=== PATIENT | male | born 1945 | race Caucasian/White ===

== ENCOUNTER 2017-10-18 22:30 | Inpatient (IN) ==
--- NOTE | 2017-10-18 22:38 | Emergency Department Note ---
Disposition Clinical Impression: HCAP (healthcare-associated pneumonia) Altered mental status Qualifiers: Altered mental status type: unspecified Qualified Code(s): R41.82 - Altered mental status, unspecified Sepsis Qualifiers: Sepsis type: sepsis due to unspecified organism Qualified Code(s): A41.9 - Sepsis, unspecified organism Disposition: Admitted As Inpatient Condition: Fair General Adult HPI - General Stated complaint: fever Time Seen by Provider: 10/18/17 22:35 - Related Data Home Medications Medication Instructions Recorded Confirmed Acetaminophen [Tylenol] 650 mg PO Q6H PRN 02/22/16 10/19/17 Albuterol Neb [Proventil Neb] 2.5 mg IH Q6H PRN 02/22/16 10/19/17 Benztropine [Cogentin] 1 mg PO TID 02/22/16 10/19/17 LORazepam [Ativan] 0.5 mg PO TID 02/22/16 10/19/17 Potassium Chloride [K-Tab ER] 20 meq PO DAILY 02/22/16 10/19/17 Topiramate [Topamax] 25 mg PO BID 02/22/16 10/19/17 Eye Vitamin-Minerals Tablet 1 cap PO BID 10/19/17 10/19/17 Fluticasone Propionate Nasal 1 spray NS 10/19/17 10/19/17 [Flonase] Gabapentin [Neurontin] 300 mg PO BID 10/19/17 10/19/17 Haloperidol [Haldol] 2.5 mg PO DAILY 10/19/17 10/19/17 Haloperidol [Haldol] 5 mg PO HS 10/19/17 10/19/17 Lurasidone HCl [Latuda] 80 mg PO HS 10/19/17 10/19/17 Metoprolol [Lopressor] 37.5 mg PO BID 10/19/17 10/19/17 Nitroglycerin [Nitrostat] 0.4 mg SL Q5M PRN 10/19/17 10/19/17 Polyethylene Glycol 3350 [MiraLAX] 17 gm PO DAILY 10/19/17 10/19/17 Sennosides/Docusate Sodium 2 each PO BID 10/19/17 10/19/17 [Senna-Docusate Sodium Tablet] Tamsulosin [Flomax] 0.4 mg PO DAILY 10/19/17 10/19/17 glipiZIDE [Glipizide] 10 mg PO BID 10/19/17 10/19/17 Previous Rx's Medication Instructions Recorded Aspirin Enteric Coated [Aspirin EC] 81 mg PO DAILY tablet. 02/23/16 Allergies Allergy/AdvReac Type Severity Reaction Status Date / Time tramadol Allergy Mild Rash Verified 02/22/16 17:05 Past Medical History - Past Medical History Medical history: Reports: COPD, GERD, hyperlipidemia, hypertension Surgical history: Reports: no surgical history Psychiatric history: Reports: schizophrenia - Social History Smoking Status: Former smoker Alcohol use: Reports: none Drug use: Reports: none Course Vital Signs Temperature 102.8 F H 10/18/17 22:45 Pulse Rate 93 10/18/17 22:45 Respiratory Rate 20 10/18/17 22:45 Blood Pressure 107/80 10/18/17 22:45 O2 Sat by Pulse Oximetry 95 10/18/17 22:45 Temperature 102.8 F H 10/18/17 22:45 Pulse Rate 83 10/19/17 01:49 Respiratory Rate 18 10/19/17 01:49 Blood Pressure 123/62 10/19/17 01:49 O2 Sat by Pulse Oximetry 98 10/19/17 01:49 Oxygen Delivery Oxygen Delivery Room Air Medical Decision Making - Lab Data Result diagrams: 10/18/17 22:45 10/18/17 22:45 Lab Results 10/18/17 10/18/17 10/18/17 Range/Units 22:45 22:45 22:45 WBC 18.0 H D (4.3-11.1) K/mcL RBC 3.48 L (4.19-5.50) M/mcL Hgb 10.6 L (12.9-16.9) g/dL Hct 32.9 L (37.5-50.1) % MCV 94.5 (83.0-100.0) fL MCH 30.5 (28.0-33.3) pg MCHC 32.2 (31.6-35.5) g/dL RDW 14.9 H (11.5-14.5) % Plt Count 208 (140-400) K/mcL MPV 9.4 (9.4-12.4) fL Immature Gran % 0.4 (0-4) % Seg Neutrophils % 83.6 % Lymphocytes % 7.4 % Monocytes % 7.2 % Eosinophils % 1.3 % Basophils % 0.1 % Neutrophils # 15.1 H (1.6-8.9) K/mcL Lymphocytes # 1.3 (0.6-4.6) K/mcL Monocytes # 1.3 (0.0-1.3) K/mcL Eosinophils # 0.2 (0.0-0.6) K/mcL Basophils # 0.0 (0.0-0.2) K/mcL PT 14.9 H (9.4-12.1) Seconds INR 1.4 APTT 80.9 H (26.0-36.0) Seconds Sodium (136-145) mEq/L Potassium (3.5-5.1) mEq/L Chloride (98-107) mEq/L Carbon Dioxide (23-29) mEq/L BUN (8-23) mg/dL Creatinine (0.70-1.30) mg/dL Est GFR ( Amer) (> 60) Est GFR (Non-Af Amer) (> 60) BUN/Creatinine Ratio (6-26) Glucose (70-105) mg/dL Calculated Osmolality (280-300) Lactic Acid (0.5-2.2) mmol/L Calcium (8.6-10.3) mg/dL Phosphorus (2.7-4.5) mg/dL Magnesium (1.6-2.6) mg/dL Total Bilirubin (0.3-1.0) mg/dL Direct Bilirubin (0.0-0.2) mg/dL Indirect Bilirubin (0.0-1.2) mg/dL AST (13-39) Units/L ALT (7-52) Units/L Alkaline Phosphatase (34-104) Units/L Troponin I (< 0.04) ng/mL Serum Total Protein (6.4-8.9) g/dL Albumin (3.5-5.7) g/dL Globulin (2.4-3.5) g/dL Albumin/Globulin Ratio (1.1-2.2) Urine Color Yellow (Yellow) Urine Clarity Cloudy A (Clear) Urine pH 7.0 (5.0-8.0) pH Units Ur Specific [place] 1.019 (1.010-1.025) Urine Protein 100 H (Neg-Trace) mg/dL Urine Glucose (UA) Normal (Normal) mg/dL Urine Ketones Negative (Negative) mg/dL Urine Blood Large H (Negative) Urine Nitrite Negative (Negative) Urine Bilirubin Negative (Negative) Urine Urobilinogen Normal (Normal) mg/dL Ur Leukocyte Esterase Trace H (Negative) Urine Microscopic RBC TNTC H (0-3) per hpf Urine Microscopic WBC 3-5 H (0-3) per hpf Ur Squamous Epith Cells Many H (None-Few) per lpf Urine Bacteria None Seen (None-Few) per hpf Hyaline Casts None Seen (None-Few) per lpf Ur Culture Indicated? NO. A (NO) Blood Type Antibody Screen 10/18/17 10/18/17 10/18/17 Range/Units 22:45 22:45 22:45 WBC (4.3-11.1) K/mcL RBC (4.19-5.50) M/mcL Hgb (12.9-16.9) g/dL Hct (37.5-50.1) % MCV (83.0-100.0) fL MCH (28.0-33.3) pg MCHC (31.6-35.5) g/dL RDW (11.5-14.5) % Plt Count (140-400) K/mcL MPV (9.4-12.4) fL Immature Gran % (0-4) % Seg Neutrophils % % Lymphocytes % % Monocytes % % Eosinophils % % Basophils % % Neutrophils # (1.6-8.9) K/mcL Lymphocytes # (0.6-4.6) K/mcL Monocytes # (0.0-1.3) K/mcL Eosinophils # (0.0-0.6) K/mcL Basophils # (0.0-0.2) K/mcL PT (9.4-12.1) Seconds INR APTT (26.0-36.0) Seconds Sodium 139 (136-145) mEq/L Potassium 4.0 (3.5-5.1) mEq/L Chloride 101 (98-107) mEq/L Carbon Dioxide 30 H (23-29) mEq/L BUN 27 H (8-23) mg/dL Creatinine 1.59 H (0.70-1.30) mg/dL Est GFR ( Amer) 53 L (> 60) Est GFR (Non-Af Amer) 43 L (> 60) BUN/Creatinine Ratio 17 (6-26) Glucose 142 H (70-105) mg/dL Calculated Osmolality 296 (280-300) Lactic Acid 1.4 (0.5-2.2) mmol/L Calcium 10.5 H (8.6-10.3) mg/dL Phosphorus 2.9 (2.7-4.5) mg/dL Magnesium 2.1 (1.6-2.6) mg/dL Total Bilirubin 0.4 (0.3-1.0) mg/dL Direct Bilirubin 0.1 (0.0-0.2) mg/dL Indirect Bilirubin 0.3 (0.0-1.2) mg/dL AST 16 (13-39) Units/L ALT 20 (7-52) Units/L Alkaline Phosphatase 133 H (34-104) Units/L Troponin I < 0.03 (< 0.04) ng/mL Serum Total Protein 7.9 (6.4-8.9) g/dL Albumin 4.4 (3.5-5.7) g/dL Globulin 3.5 (2.4-3.5) g/dL Albumin/Globulin Ratio 1.3 (1.1-2.2) Urine Color (Yellow) Urine Clarity (Clear) Urine pH (5.0-8.0) pH Units Ur Specific [place] (1.010-1.025) Urine Protein (Neg-Trace) mg/dL Urine Glucose (UA) (Normal) mg/dL Urine Ketones (Negative) mg/dL Urine Blood (Negative) Urine Nitrite (Negative) Urine Bilirubin (Negative) Urine Urobilinogen (Normal) mg/dL Ur Leukocyte Esterase (Negative) Urine Microscopic RBC (0-3) per hpf Urine Microscopic WBC (0-3) per hpf Ur Squamous Epith Cells (None-Few) per lpf Urine Bacteria (None-Few) per hpf Hyaline Casts (None-Few) per lpf Ur Culture Indicated? (NO) Blood Type O NEGATIVE Antibody Screen NEGATIVE Critical Care Time Critical Care Time: Yes Total Critical Care Time: 40 Attestation: Critical care performed: Time is exclusive of separately billable procedures. Time includes: direct patient care, patient reassessment, coordination of patient care, interpretation of data (laboratory data, radiology data, and respiratory data), review of patient's medical records, medical consultation and documentation of patient care. Procedures included in critical care time: Procedures excluded from critical care time: Attestation Statement - Attestation Attestation: I examined this patient and my medical decision-making was reviewed with the Resident Physician. I agree with the documented findings, disposition and treatment plan as described except to the extent set forth below. [facility] patient was noted to be altered and confused. Patient is normally verbal but has been mumbling tonight. No complaint when asked but I question his mental status. On exam he has a tremor. Febrile. Lungs diminished. He does have some abdominal tenderness but no guarding. Plan. Altered mental status and septic workup. Patient's workup shows significant infiltrates in his lungs. He is treated for hospital-acquired pneumonia. Patient started on broad-spectrum antibiotic and admitted. Chest X-Ray 10/18/17 22:36 IMPRESSION: Minimal perihilar opacities appear stable. Suspected ground-glass opacification in the retrocardiac left lower lobe. D/ / Luis Mercedes MD / Luis Mercedes MD Interpreting Provider: Luis Mercedes MD Head CT 10/18/17 22:36 IMPRESSION: No acute intracranial abnormality. D/ / Neno Hartley / Neno Hartley Interpreting Provider: Neno Hartley Abdomen/Pelvis CT 10/19/17 00:00 IMPRESSION: 1. Examination is limited due to lack of IV contrast and motion artifact. 2. No definite acute findings. 3. Previously noted complex loculated left pleural effusion has resolved with residual reticulonodular opacities in the lingula and left lower lobe, in area of previously noted airspace disease. This possibly represents postinflammatory changes and scarring. 4. Additional focal opacity at the left lung base could represent atelectasis or infiltrate. 5. Tiny cluster of nodular opacities in the right upper lobe are not well characterized, but possibly represents a focus of bronchiolitis. 6. Additional scattered lung nodules up to 7 mm. 7. Mediastinal hilar lymphadenopathy is slightly more prominent compared to prior examination. This is nonspecific, possibly reactive. However malignancy or lymphoma cannot be excluded. 8. No definite acute findings within the abdomen or pelvis. No evidence of appendicitis. 9. Mildly distended bladder with tiny layering stones. 10. 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 D/ / Neno Merritt MD / Neno Merritt MD Interpreting Provider: Neno Merritt MD Chest CT 10/19/17 00:00
[2017-10-18 23:00] LABS: Basophils % 0.1 %; Eosinophils # 0.2 K/mcL (0.0-0.6); Eosinophils % 1.3 %; Hematocrit 32.9 % (37.5-50.1); Hemoglobin 10.6 g/dL (12.9-16.9); Immature Granulocytes % 0.4 % (0-4); Lymphocytes # 1.3 K/mcL (0.6-4.6); Lymphocytes % 7.4 %; Mean Corpuscular HGB Conc 32.2 g/dL (31.6-35.5); Mean Corpuscular Hemoglobin 30.5 pg (28.0-33.3); Mean Corpuscular Volume 94.5 fL (83.0-100.0); Mean Platelet Volume 9.4 fL (9.4-12.4); Monocytes # 1.3 K/mcL (0.0-1.3); Monocytes % 7.2 %; Platelet Count 208 K/mcL (140-400); Red Blood Count 3.48 M/mcL (4.19-5.50); Red Cell Distribution Width 14.9 % (11.5-14.5); Segmented Neutrophils % 83.6 %
[2017-10-18 23:01] LABS: Bilirubin,Urine Negative (Negative); Blood,Urine Large (Negative); Clarity,Urine Cloudy (Clear); Color,Urine Yellow (Yellow); Glucose,Urine (UA) Normal (Normal); Ketones,Urine Negative (Negative); Leukocyte Esterase,Urine Trace (Negative); Nitrite,Urine Negative (Negative); Protein,Urine 100 mg/dL (Neg-Trace); Specific Gravity,Urine 1.019 (1.010-1.025); Urobilinogen,Urine Normal (Normal)
[2017-10-18 23:02] LABS: Neutrophils # 15.1 K/mcL (1.6-8.9)
[2017-10-18 23:03] LABS: Bacteria,Urine None Seen per hpf (None-Few); Hyaline Casts,Urine None Seen per lpf (None-Few); RBC,Urine TNTC per hpf (0-3); Squamous Epithelial Cell,Urine Many per lpf (None-Few)
[2017-10-18 23:08] LABS: INR 1.4; Prothrombin Time 14.9 Seconds (9.4-12.1)
[2017-10-18 23:10] LABS: Activated Partial Thrombo Time 80.9 Seconds (26.0-36.0)
[2017-10-18 23:22] LABS: Troponin I < 0.03 ng/mL (< 0.04)
[2017-10-18 23:23] LABS: Alanine Aminotransferase 20 Units/L (7-52); Albumin 4.4 g/dL (3.5-5.7); Albumin/Globulin Ratio 1.3 (1.1-2.2); Alkaline Phosphatase 133 Units/L (34-104); Aspartate Amino Transferase 16 Units/L (13-39); BUN/Creatinine Ratio 17 (6-26); Bilirubin,Direct 0.1 mg/dL (0.0-0.2); Bilirubin,Indirect 0.3 mg/dL (0.0-1.2); Bilirubin,Total 0.4 mg/dL (0.3-1.0); Blood Urea Nitrogen 27 mg/dL (8-23); Calcium 10.5 mg/dL (8.6-10.3); Carbon Dioxide 30 mEq/L (23-29); Chloride 101 mEq/L (98-107); Globulin 3.5 g/dL (2.4-3.5); Glucose 142 mg/dL (70-105); Magnesium 2.1 mg/dL (1.6-2.6); Osmolality,Calculated 296 (280-300); Phosphorous 2.9 mg/dL (2.7-4.5); Sodium 139 mEq/L (136-145); Total Protein 7.9 g/dL (6.4-8.9); eGFR For African Americans 53 (> 60); eGFR For Non-African Americans 43 (> 60)
[2017-10-19] MEDS ORDERED: Piperacillin/Tazobactam 3.375 GM in 0.9 % Sodium Chloride Mini Bag 100 ML IVPB ONE (01:08)
[2017-10-19] MEDS ORDERED: Levofloxacin 750 MG/150 ML 750 MG/150 ML BAG IVPB ONE (01:08)
[2017-10-19] MEDS ORDERED: 0.9 % Sodium Chloride 1,000 ML IVC ONE (01:08)
--- NOTE | 2017-10-19 01:42 | Emergency Department Note ---
Disposition Clinical Impression: HCAP (healthcare-associated pneumonia) Altered mental status Qualifiers: Altered mental status type: unspecified Qualified Code(s): R41.82 - Altered mental status, unspecified Sepsis Qualifiers: Sepsis type: sepsis due to unspecified organism Qualified Code(s): A41.9 - Sepsis, unspecified organism Disposition: Admitted As Inpatient Condition: Fair [facility]Primary Care Provider[facility] - Time of Disposition: 01:50 Altered Mental Status HPI - General Chief Complaint: ED Fever Stated Complaint: fever Time Seen by Provider: 10/18/17 22:35 Source: EMS Limitations: altered mental status Nursing Notes Reviewed: Yes Vital Signs Reviewed: Yes - History of Present Illness HPI Narrative: Patient is a 71-year-old male who presents to [facility] ED as a transfer [facility] with concern for altered mental status and fever. Per the [facility] documentation, patient has had a cough and they have been giving him nebulizer treatments throughout the day. He was found to be having altered mental status with unintelligible mumbling. He is normally alert and able to communicate without difficulty. Patient was also found to be febrile there at 100.2. He was then transferred to our emergency department for further evaluation. MD complaint: altered mental status Onset (ago): day(s) (1) Consistency of Symptoms: getting worse - Related Data Home Medications Medication Instructions Recorded Confirmed Acetaminophen [Tylenol] 650 mg PO Q6H PRN 02/22/16 10/19/17 Albuterol Neb [Proventil Neb] 2.5 mg IH Q6H PRN 02/22/16 10/19/17 Benztropine [Cogentin] 1 mg PO TID 02/22/16 10/19/17 LORazepam [Ativan] 0.5 mg PO TID 02/22/16 10/19/17 Potassium Chloride [K-Tab ER] 20 meq PO DAILY 02/22/16 10/19/17 Topiramate [Topamax] 25 mg PO BID 02/22/16 10/19/17 Eye Vitamin-Minerals Tablet 1 cap PO BID 10/19/17 10/19/17 Fluticasone Propionate Nasal 1 spray NS HS 10/19/17 10/19/17 [Flonase] Gabapentin [Neurontin] 300 mg PO BID 10/19/17 10/19/17 Haloperidol [Haldol] 2.5 mg PO DAILY 10/19/17 10/19/17 Haloperidol [Haldol] 5 mg PO HS 10/19/17 10/19/17 Lurasidone HCl [Latuda] 80 mg PO HS 10/19/17 10/19/17 Metoprolol [Lopressor] 37.5 mg PO BID 10/19/17 10/19/17 Nitroglycerin [Nitrostat] 0.4 mg SL Q5M PRN 10/19/17 10/19/17 Polyethylene Glycol 3350 [MiraLAX] 17 gm PO DAILY 10/19/17 10/19/17 Sennosides/Docusate Sodium 2 each PO BID 10/19/17 10/19/17 [Senna-Docusate Sodium Tablet] Tamsulosin [Flomax] 0.4 mg PO DAILY 10/19/17 10/19/17 glipiZIDE [Glipizide] 10 mg PO BID 10/19/17 10/19/17 Previous Rx's Medication Instructions Recorded Aspirin Enteric Coated [Aspirin EC] 81 mg PO DAILY tablet. 02/23/16 Allergies Allergy/AdvReac Type Severity Reaction Status Date / Time tramadol Allergy Mild Rash Verified 02/22/16 17:05 Limitations: ROS unobtainable due to patients medical condition Past Medical History - Past Medical History Source: old records reviewed Medical history: Reports: COPD, GERD, hyperlipidemia, hypertension Surgical history: Reports: no surgical history Psychiatric history: Reports: schizophrenia - Social History Smoking Status: Former smoker Alcohol use: Reports: none Drug use: Reports: none Physical Exam - General Limitations: altered mental status General appearance: obtunded - Head Head exam: atraumatic, normocephalic, normal inspection - Eye Eye exam: Present: normal appearance, PERRL, EOMI - ENT ENT exam: normal exam, mucous membranes moist - Neck Neck exam: Present: normal inspection, full ROM, trachea midline - Chest Chest inspection: Present: normal inspection, symmetric chest wall rise - Respiratory Respiratory exam: Present: other (Course breath sounds bilaterally) - Cardiovascular Cardiovascular exam: Present: regular rate, normal rhythm, normal heart sounds - Abdominal Exam Abdominal exam: Present: soft, normal bowel sounds. Absent: distention - Extremities Exam Extremities exam: Present: normal inspection. Absent: tenderness, pedal edema - Skin Skin exam: Present: warm, dry, intact, normal color Course Course Narrative: Patient seen and examined. Patient is a transfer from the [facility] for altered mental status and fever and cough. Septic workup initiated. He is febrile here and is borderline tachycardic. He is mumbling unintelligible speech. Normally alert and able to converse. CT of the chest, abdomen and pelvis ordered since patient is unable to indicate. - Reevaluation(s) Reevaluation #1: Labwork shows a leukocytosis of 18. CT of the chest shows signs of infiltrate. We will go ahead and treat as a healthcare associated pneumonia. Vancomycin, Levaquin, and Zosyn ordered. I discussed with the hospitalist who has accepted patient for admission. Time: 01:46 Vital Signs Temperature 102.8 F H 10/18/17 22:45 Pulse Rate 93 10/18/17 22:45 Respiratory Rate 20 10/18/17 22:45 Blood Pressure 107/80 10/18/17 22:45 O2 Sat by Pulse Oximetry 95 10/18/17 22:45 Temperature 102.8 F H 10/18/17 22:45 Pulse Rate 92 10/19/17 00:38 Respiratory Rate 20 10/19/17 00:38 Blood Pressure 151/124 10/19/17 00:38 O2 Sat by Pulse Oximetry 96 10/19/17 00:38 Oxygen Delivery Oxygen Delivery Nasal Cannula Altered Mental Status - Medical Records Medical records reviewed: Yes I reviewed the patient's medical records. - Lab Data Lab results reviewed: Yes I reviewed the patient's lab results. Result diagrams: 10/18/17 22:45 10/18/17 22:45 Lab Results 10/18/17 10/18/17 10/18/17 Range/Units 22:45 22:45 22:45 WBC 18.0 H D (4.3-11.1) K/mcL RBC 3.48 L (4.19-5.50) M/mcL Hgb 10.6 L (12.9-16.9) g/dL Hct 32.9 L (37.5-50.1) % MCV 94.5 (83.0-100.0) fL MCH 30.5 (28.0-33.3) pg MCHC 32.2 (31.6-35.5) g/dL RDW 14.9 H (11.5-14.5) % Plt Count 208 (140-400) K/mcL MPV 9.4 (9.4-12.4) fL Immature Gran % 0.4 (0-4) % Seg Neutrophils % 83.6 % Lymphocytes % 7.4 % Monocytes % 7.2 % Eosinophils % 1.3 % Basophils % 0.1 % Neutrophils # 15.1 H (1.6-8.9) K/mcL Lymphocytes # 1.3 (0.6-4.6) K/mcL Monocytes # 1.3 (0.0-1.3) K/mcL Eosinophils # 0.2 (0.0-0.6) K/mcL Basophils # 0.0 (0.0-0.2) K/mcL PT 14.9 H (9.4-12.1) Seconds INR 1.4 APTT 80.9 H (26.0-36.0) Seconds Sodium (136-145) mEq/L Potassium (3.5-5.1) mEq/L Chloride (98-107) mEq/L Carbon Dioxide (23-29) mEq/L BUN (8-23) mg/dL Creatinine (0.70-1.30) mg/dL Est GFR ( Amer) (> 60) Est GFR (Non-Af Amer) (> 60) BUN/Creatinine Ratio (6-26) Glucose (70-105) mg/dL Calculated Osmolality (280-300) Lactic Acid (0.5-2.2) mmol/L Calcium (8.6-10.3) mg/dL Phosphorus (2.7-4.5) mg/dL Magnesium (1.6-2.6) mg/dL Total Bilirubin (0.3-1.0) mg/dL Direct Bilirubin (0.0-0.2) mg/dL Indirect Bilirubin (0.0-1.2) mg/dL AST (13-39) Units/L ALT (7-52) Units/L Alkaline Phosphatase (34-104) Units/L Troponin I (< 0.04) ng/mL Serum Total Protein (6.4-8.9) g/dL Albumin (3.5-5.7) g/dL Globulin (2.4-3.5) g/dL Albumin/Globulin Ratio (1.1-2.2) Urine Color Yellow (Yellow) Urine Clarity Cloudy A (Clear) Urine pH 7.0 (5.0-8.0) pH Units Ur Specific [place] 1.019 (1.010-1.025) Urine Protein 100 H (Neg-Trace) mg/dL Urine Glucose (UA) Normal (Normal) mg/dL Urine Ketones Negative (Negative) mg/dL Urine Blood Large H (Negative) Urine Nitrite Negative (Negative) Urine Bilirubin Negative (Negative) Urine Urobilinogen Normal (Normal) mg/dL Ur Leukocyte Esterase Trace H (Negative) Urine Microscopic RBC TNTC H (0-3) per hpf Urine Microscopic WBC 3-5 H (0-3) per hpf Ur Squamous Epith Cells Many H (None-Few) per lpf Urine Bacteria None Seen (None-Few) per hpf Hyaline Casts None Seen (None-Few) per lpf Ur Culture Indicated? NO. A (NO) Blood Type Antibody Screen 10/18/17 10/18/17 10/18/17 Range/Units 22:45 22:45 22:45 WBC (4.3-11.1) K/mcL RBC (4.19-5.50) M/mcL Hgb (12.9-16.9) g/dL Hct (37.5-50.1) % MCV (83.0-100.0) fL MCH (28.0-33.3) pg MCHC (31.6-35.5) g/dL RDW (11.5-14.5) % Plt Count (140-400) K/mcL MPV (9.4-12.4) fL Immature Gran % (0-4) % Seg Neutrophils % % Lymphocytes % % Monocytes % % Eosinophils % % Basophils % % Neutrophils # (1.6-8.9) K/mcL Lymphocytes # (0.6-4.6) K/mcL Monocytes # (0.0-1.3) K/mcL Eosinophils # (0.0-0.6) K/mcL Basophils # (0.0-0.2) K/mcL PT (9.4-12.1) Seconds INR APTT (26.0-36.0) Seconds Sodium 139 (136-145) mEq/L Potassium 4.0 (3.5-5.1) mEq/L Chloride 101 (98-107) mEq/L Carbon Dioxide 30 H (23-29) mEq/L BUN 27 H (8-23) mg/dL Creatinine 1.59 H (0.70-1.30) mg/dL Est GFR ( Amer) 53 L (> 60) Est GFR (Non-Af Amer) 43 L (> 60) BUN/Creatinine Ratio 17 (6-26) Glucose 142 H (70-105) mg/dL Calculated Osmolality 296 (280-300) Lactic Acid 1.4 (0.5-2.2) mmol/L Calcium 10.5 H (8.6-10.3) mg/dL Phosphorus 2.9 (2.7-4.5) mg/dL Magnesium 2.1 (1.6-2.6) mg/dL Total Bilirubin 0.4 (0.3-1.0) mg/dL Direct Bilirubin 0.1 (0.0-0.2) mg/dL Indirect Bilirubin 0.3 (0.0-1.2) mg/dL AST 16 (13-39) Units/L ALT 20 (7-52) Units/L Alkaline Phosphatase 133 H (34-104) Units/L Troponin I < 0.03 (< 0.04) ng/mL Serum Total Protein 7.9 (6.4-8.9) g/dL Albumin 4.4 (3.5-5.7) g/dL Globulin 3.5 (2.4-3.5) g/dL Albumin/Globulin Ratio 1.3 (1.1-2.2) Urine Color (Yellow) Urine Clarity (Clear) Urine pH (5.0-8.0) pH Units Ur Specific [place] (1.010-1.025) Urine Protein (Neg-Trace) mg/dL Urine Glucose (UA) (Normal) mg/dL Urine Ketones (Negative) mg/dL Urine Blood (Negative) Urine Nitrite (Negative) Urine Bilirubin (Negative) Urine Urobilinogen (Normal) mg/dL Ur Leukocyte Esterase (Negative) Urine Microscopic RBC (0-3) per hpf Urine Microscopic WBC (0-3) per hpf Ur Squamous Epith Cells (None-Few) per lpf Urine Bacteria (None-Few) per hpf Hyaline Casts (None-Few) per lpf Ur Culture Indicated? (NO) Blood Type O NEGATIVE Antibody Screen NEGATIVE - Radiology Data Radiology results reviewed: Yes I reviewed the patient's radiology results. Chest X-Ray 10/18/17 22:36 IMPRESSION: Minimal perihilar opacities appear stable. Suspected ground-glass opacification in the retrocardiac left lower lobe. D/ / Luis Mercedes MD / Luis Mercedes MD Interpreting Provider: Luis Mercedes MD Head CT 10/18/17 22:36 IMPRESSION: No acute intracranial abnormality. D/ / Neno Hartley / Neno Hartley Interpreting Provider: Neno Hartley Abdomen/Pelvis CT 10/19/17 00:00 IMPRESSION: 1. Examination is limited due to lack of IV contrast and motion artifact. 2. No definite acute findings. 3. Previously noted complex loculated left pleural effusion has resolved with residual reticulonodular opacities in the lingula and left lower lobe, in area of previously noted airspace disease. This possibly represents postinflammatory changes and scarring. 4. Additional focal opacity at the left lung base could represent atelectasis or infiltrate. 5. Tiny cluster of nodular opacities in the right upper lobe are not well characterized, but possibly represents a focus of bronchiolitis. 6. Additional scattered lung nodules up to 7 mm. 7. Mediastinal hilar lymphadenopathy is slightly more prominent compared to prior examination. This is nonspecific, possibly reactive. However malignancy or lymphoma cannot be excluded. 8. No definite acute findings within the abdomen or pelvis. No evidence of appendicitis. 9. Mildly distended bladder with tiny layering stones. 10. 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 D/ / Neno Merritt MD / Neno Merritt MD Interpreting Provider: Neno Merritt MD Chest CT 10/19/17 00:00 IMPRESSION: 1. Examination is limited due to lack of IV contrast and motion artifact. 2. No definite acute findings. 3. Previously noted complex loculated left pleural effusion has resolved with residual reticulonodular opacities in the lingula and left lower lobe, in area of previously noted airspace disease. This possibly represents postinflammatory changes and scarring. 4. Additional focal opacity at the left lung base could represent atelectasis or infiltrate. 5. Tiny cluster of nodular opacities in the right upper lobe are not well characterized, but possibly represents a focus of bronchiolitis. 6. Additional scattered lung nodules up to 7 mm. 7. Mediastinal hilar lymphadenopathy is slightly more prominent compared to prior examination. This is nonspecific, possibly reactive. However malignancy or lymphoma cannot be excluded. 8. No definite acute findings within the abdomen or pelvis. No evidence of appendicitis. 9. Mildly distended bladder with tiny layering stones. 10. 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 D/ / Neno Merritt MD / Neno Merritt MD Interpreting Provider: Neno Merritt MD - EKG Data EKG attestation: Yes I reviewed and interpreted this EKG. EKG results narrative: EKG done at 2252 shows normal sinus rhythm with a rate of [address] elevation or depression noted. Left axis deviation. Moderate intraventricular ventricular conduction delay noted. We will appears unchanged from EKG done 01/2016. TPA Checklist - LKW: 3-4.5 hrs Add. Warnings/Precautions Patient/family understanding: The patient/family members have been counseled and understood the risk, benefit , and alternatives of treatment.
[2017-10-19] MEDS ORDERED: Acetaminophen 325 MG TABLET PO PRN (02:33)
[2017-10-19] MEDS ORDERED: Naloxone 0.4 MG/ML INJ IVP PRN (02:33)
[2017-10-19] MEDS ORDERED: Nitroglycerin 0.4 MG TAB.SUBL SL PRN (02:37)
[2017-10-19] MEDS ORDERED: *HR* Dextrose 50 % in Water (Syg) 50 ML SYRINGE IVP PRN (02:39)
[2017-10-19] MEDS ORDERED: D5% in Water 1,000 ML IVC PRN (02:39)
[2017-10-19] MEDS ORDERED: Dextrose Gel 15 GM/37.5 ML TUBE PO PRN ×2 (02:39)
[2017-10-19] MEDS ORDERED: Ipratropium/Albuterol Neb 3 ML IH PRN (02:40)
--- NOTE | 2017-10-19 02:49 | Internal Med History&Physical ---
Date of Encounter: 10/19/17 Time of Encounter: 02:41 Internal Medicine - H&P: HPI Chief complaint: Altered mental status Admitted From: Emergency Dept Plans for Post Hospital Care: Transfer [facility] History of present illness: Mr. Upton is a 71 year old male with h/o- schizophrenia, CKD, HTN, DM, who is a assisted resident at the [facility]. He was sent for evaluation of altered mental status from his baseline and cough and fever. patient cannot provide much history even at baseline, per previous records, due to his underlying Schizophrenia. He currently moans and mumbles unintelligibly and has tremors in both his hands. HE is only able to nod his head to his name and report he is in the hospital, but otherwise cannot answer any questions. Per ER records, patient was noted to have persistent cough and fever since this morning, for which he has been getting breathing treatments, with no improvement. HE was also noted to have a new change in his mental status with mumbling and inability to use any words. Past Med Surg Social Fam HX - Past Medical History Source: old records reviewed Medical history: COPD, diabetes, GERD, hyperlipidemia, hypertension, renal disease Psychiatric history: schizophrenia - Past Surgical History Surgical History: no surgical history (unable to be obtained due to patient;s mental status) - Social History Smoking Status: Former smoker Alcohol use: none Drug use: none Occupational status: disabled Current living situation: [facility] Activity Level: Wheelchair bound Recent Out of Country Travel Within the Last 8 Weeks: No Exposure or Possible Exposure to Illness During Travel: No - Additional Family History Additional family history: unable to be obtained due to patient;s mental status Internal Medicine - H&P: Meds Acetaminophen [Tylenol] 650 mg PO Q6H PRN 02/22/16 [History] Albuterol Neb [Proventil Neb] 2.5 mg IH Q6H PRN 02/22/16 [History] Benztropine [Cogentin] 1 mg PO TID 02/22/16 [History] LORazepam [Ativan] 0.5 mg PO TID 02/22/16 [History] Potassium Chloride [K-Tab ER] 20 meq PO DAILY 02/22/16 [History] Topiramate [Topamax] 25 mg PO BID 02/22/16 [History] Aspirin Enteric Coated [Aspirin EC] 81 mg PO DAILY tablet. 02/23/16 [Rx] Eye Vitamin-Minerals Tablet 1 cap PO BID 10/19/17 [History] Fluticasone Propionate Nasal [Flonase] 1 spray NS HS 10/19/17 [History] Gabapentin [Neurontin] 300 mg PO BID 10/19/17 [History] Haloperidol [Haldol] 2.5 mg PO DAILY 10/19/17 [History] Haloperidol [Haldol] 5 mg PO HS 10/19/17 [History] Lurasidone HCl [Latuda] 80 mg PO HS 10/19/17 [History] Metoprolol [Lopressor] 37.5 mg PO BID 10/19/17 [History] Nitroglycerin [Nitrostat] 0.4 mg SL Q5M PRN 10/19/17 [History] Polyethylene Glycol 3350 [MiraLAX] 17 gm PO DAILY 10/19/17 [History] Sennosides/Docusate Sodium [Senna-Docusate Sodium Tablet] 2 each PO BID [History] Tamsulosin [Flomax] 0.4 mg PO DAILY 10/19/17 [History] glipiZIDE [Glipizide] 10 mg PO BID 10/19/17 [History] 3 Allergy/AdvReac Type Severity Reaction Status Date / Time tramadol Allergy Mild Rash Verified 02/22/16 17:05 All Systems PM: A 10-system review of systems was performed and is negative for pertinent findings except as documented above in the HPI. - Constitutional Constitutional: chills, fever(s) - EENT Eyes: no change in vision, no discharge, no pain, no photophobia Ears: no ear discharge, no ear pain, no tinnitus Nose, mouth and throat: no dysphagia, no nasal discharge, no neck pain, no sore throat - Cardiovascular Cardiovascular ROS IM: no chest pain, no diaphoresis, no dyspnea, no lightheadedness, no palpitations, no syncope - Respiratory Respiratory: cough, chest congestion - Gastrointestinal Gastrointestinal: no abdominal pain, no diarrhea, no hematemesis, no hematochezia, no melena, no nausea, no vomiting - Musculoskeletal Musculoskeletal ROS IM: no numbness, no tingling - Integumentary Integumentary IM: no rash, no unusual bruising - Neurological Neurological ROS: abnormal speech, behavioral changes, confusion - Hematologic/Lymphatic Hematologic/Lymphatic: no easy bruising - Constitutional Vitals: Temp Pulse Resp BP Pulse Ox 102.8 F H 83 18 123/62 98 10/18/17 22:45 10/19/17 01:49 10/19/17 01:49 10/19/17 01:49 10/19/17 01:49 General appearance: Present: A&O X 1 (mumbling and moaning). Absent: answers questions appropriately - Respiratory Respiratory exam: Present: CTAB (coarse breath sounds B/L anterolaterally; uncooperative due to continuous moaning). Absent: accessory muscle use, rales, rhonchi, wheezes - Cardiovascular Cardiovascular exam: Present: RRR, +S1, +S2. Absent: diastolic murmur, gallop, rubs, systolic murmur - GI/Abdominal GI/Abdominal exam: Present: normal bowel sounds, soft (obese), no peritoneal signs. Absent: distended, tenderness - Extremities Exam Extremities exam: Present: warm, radial pulses palpable and symmetrical. Absent : calf tenderness, cyanotic, pedal edema Additional comments: B/L UE tremors - Neurological Exam Neurological exam: Present: altered (cannot follow commands), no focal deficits. Absent: pronater drift, facial droop, speech deficit - Skin Skin exam: Present: dry, intact Internal Med - H&P Results - Labs CBC & Chem 7: 10/18/17 22:45 10/18/17 22:45 - EKG Data -: EKG Interpreted by Myself EKG shows normal: sinus rhythm (repolarization abnormalities, IVCD) Rate: normal - Assessment and plan (1) Sepsis Current Visit: Yes Status: Acute Assessment and plan: presents with fever, tachycardia, leukocytosis and altered mental status. Lactic acid normal. Continue IV hydration and antibiotics, f/up cultures and monitor vital signs closely; Qualifiers: Sepsis type: sepsis due to unspecified organism Qualified Code(s): A41.9 - Sepsis, unspecified organism (2) HCAP (healthcare-associated pneumonia) Current Visit: Yes Status: Suspected Assessment and plan: CT hcest shows improvement in loculated pleural effusion and infiltrates at left base, but new opacity in left lower lobe and RUL bronchiolitis; f/up blood cultures. Check urine Legionella and Strep pneumoniae Ag; continue IV Vancomycin, Zosyn and Levaquin for possible HCAP; supplemental O2 and supportive care; (3) CKD (chronic kidney disease), stage III Current Visit: Yes Status: Chronic Assessment and plan: per previous notes, baseline serum creatinine around 1.5, now at 1.59; follows with Nephrology and Oncology; also being worked up for possible multiple myeloma ; (4) Diabetes mellitus Current Visit: Yes Status: Chronic Assessment and plan: blood sugars well-controlled; Accucheck blood glucose monitoring with sliding scale insulin as needed; diabetic diet; Qualifiers: Diabetes mellitus type: type 2 Diabetes mellitus exterminator helper insulin use: without assisted use Diabetes mellitus complication status: with kidney complications Diabetes mellitus complication detail: with chronic kidney disease Chronic kidney disease stage: stage 3 (moderate) Qualified Code(s): E11.22 - Type 2 diabetes mellitus with diabetic chronic kidney disease; N18.3 - Chronic kidney disease, stage 3 (moderate); N18.3 - Chronic kidney disease, stage 3 (moderate) (5) Schizophrenia Current Visit: Yes Status: Chronic Assessment and plan: continue home meds; supportive care; Qualifiers: Schizophrenia type: paranoid schizophrenia Qualified Code(s): F20.0 - Paranoid schizophrenia (6) COPD (chronic obstructive pulmonary disease) Current Visit: Yes Status: Chronic Assessment and plan: not in acute exacerbation; PRN breathing treatments and supplemental O2; currently requiring 4L/min via NC, unclear baseline O2 requirements; Qualifiers: COPD type: emphysema Emphysema type: unspecified Qualified Code(s): J43.9 - Emphysema, unspecified (7) Hyperlipidemia Current Visit: Yes Status: Chronic Qualifiers: Hyperlipidemia type: unspecified Qualified Code(s): E78.5 - Hyperlipidemia , unspecified (8) Hypertension Current Visit: Yes Status: Chronic Assessment and plan: BP acceptable; resume home meds; Qualifiers: Hypertension type: essential hypertension Qualified Code(s): I10 - Essential (primary) hypertension - Time Spent With Patient Total time spent is greater than 50% in coordination of care (as documented) at patient's floor/unit and/or counseling patient:
[2017-10-19] MEDS ORDERED: Vancomycin 1,750 MG in 0.9 % Sodium Chloride 250 ML IVPB SCH (03:00)
[2017-10-19] MEDS ORDERED: Acetaminophen IV 500 MG/50 ML INFUS..BTL IVPB PRN ×2 (03:44→15:44)
[2017-10-19] MEDS: Ringers Solution, Lactated 1,000 ML IVC SCH (04:31)
[2017-10-19 05:17] LABS: Eosinophils # 0.2 K/mcL (0.0-0.6); Eosinophils % 1.3 %; Hematocrit 28.2 % (37.5-50.1); Hemoglobin 9.2 g/dL (12.9-16.9); Immature Granulocytes % 0.4 % (0-4); Lymphocytes # 1.7 K/mcL (0.6-4.6); Lymphocytes % 10.5 %; Mean Corpuscular HGB Conc 32.6 g/dL (31.6-35.5); Mean Corpuscular Hemoglobin 31.1 pg (28.0-33.3); Mean Corpuscular Volume 95.3 fL (83.0-100.0); Mean Platelet Volume 9.9 fL (9.4-12.4); Monocytes # 1.6 K/mcL (0.0-1.3); Monocytes % 9.8 %; Neutrophils # 12.8 K/mcL (1.6-8.9); Platelet Count 193 K/mcL (140-400); Red Blood Count 2.96 M/mcL (4.19-5.50)
[2017-10-19 05:27] LABS: Calcium 9.3 mg/dL (8.6-10.3); Potassium 3.7 mEq/L (3.5-5.1)
[2017-10-19] MEDS: *HR* Heparin 5,000 UNIT/ML VIAL SQ SCH ×2 (06:02→16:09)
[2017-10-19] MEDS: *HR* LORazepam 0.5 MG TABLET PO SCH ×3 (08:55→23:15)
[2017-10-19] MEDS: Gabapentin 300 MG CAPSULE PO SCH ×2 (08:55→23:27)
[2017-10-19] MEDS: Sennosides/Docusate Sodium TABLET PO SCH ×2 (08:56→23:14)
[2017-10-19] MEDS: Topiramate 25 MG TABLET PO SCH ×2 (08:56→23:14)
[2017-10-19] MEDS: Aspirin Enteric Coated 81 MG Tablet PO SCH (08:56)
[2017-10-19] MEDS: Piperacillin/Tazobactam 3.375 GM in 0.9 % Sodium Chloride Mini Bag 100 ML IVPB SCH ×3 (08:57→23:16)
[2017-10-19] MEDS: Insulin LISPRO 300 UNITS/3 ML VIAL SQ SCH ×4 (08:58→23:27)
--- NOTE | 2017-10-19 11:03 | Event Note ---
Date of Encounter: 10/19/17 Time of Encounter: 11:03 Patient is seen and evaluated at the bedside with RN in the room 71 M [facility] of Sch[facility]ia, CKD, HTN, DM, HTBN, HLD who is admitted as in-patient and being managed for Sepsis secondary to HCAP. During admission, found to be altered and mostly non-verbal At my time of evaluation, he is awake and alert, oriented to person. Able to hold a conversation and not confused, not in any form of distress, chest with basal rhonchi, abdomen is benign, no pedal edema Bedside swallow test was unremarkable We will continue vanco/levaquin/zosyn, IVF, home meds, follow culture repots. Plan is to de-escalate antibiotics with negative blood cultures when patient is clinically stable Can start full liquid diet pending speech and swallow eval for dysphagia that was present on admission
[2017-10-19] MEDS: Acetaminophen 325 MG TABLET PO PRN (16:15)
[2017-10-19] MEDS: Fluticasone Propionate Nasal 50 MCG/SPRAY BOTTLE NS SCH (23:27)
[2017-10-20] MEDS: Acetaminophen 325 MG TABLET PO PRN (00:28)
[2017-10-20 07:15] LABS: Calcium 9.4 mg/dL (8.6-10.3); Potassium 3.5 mEq/L (3.5-5.1)
[2017-10-20 07:36] LABS: INR 1.6; Prothrombin Time 17.7 Seconds (9.4-12.1)
[2017-10-20 07:39] LABS: Activated Partial Thrombo Time 85.1 Seconds (26.0-36.0)
--- NOTE | 2017-10-20 07:53 | Internal Med Progress Note ---
<Yves Liu T - Last Filed: 10/20/17 16:09> Date of Encounter: 10/20/17 - Assessment and plan (1) Hyperlipidemia Current Visit: Yes Status: Chronic Qualifiers: Hyperlipidemia type: unspecified Qualified Code(s): E78.5 - Hyperlipidemia , unspecified (2) Hypertension Current Visit: Yes Status: Chronic Qualifiers: Hypertension type: essential hypertension Qualified Code(s): I10 - Essential (primary) hypertension (3) COPD (chronic obstructive pulmonary disease) Current Visit: Yes Status: Chronic Qualifiers: COPD type: emphysema Emphysema type: unspecified Qualified Code(s): J43.9 - Emphysema, unspecified (4) Schizophrenia Current Visit: Yes Status: Chronic Qualifiers: Schizophrenia type: paranoid schizophrenia Qualified Code(s): F20.0 - Paranoid schizophrenia (5) HCAP (healthcare-associated pneumonia) Current Visit: Yes Status: Suspected (6) Sepsis Current Visit: Yes Status: Acute Qualifiers: Sepsis type: sepsis due to unspecified organism Qualified Code(s): A41.9 - Sepsis, unspecified organism (7) CKD (chronic kidney disease), stage III Current Visit: Yes Status: Chronic (8) Diabetes mellitus Current Visit: Yes Status: Chronic Qualifiers: Diabetes mellitus type: type 2 Diabetes mellitus valuation consultant insulin use: without shelter use Diabetes mellitus complication status: with kidney complications Diabetes mellitus complication detail: with chronic kidney disease Chronic kidney disease stage: stage 3 (moderate) Qualified Code(s): E11.22 - Type 2 diabetes mellitus with diabetic chronic kidney disease; N18.3 - Chronic kidney disease, stage 3 (moderate); N18.3 - Chronic kidney disease, stage 3 (moderate) - Time Spent With Patient Total time spent is greater than 50% in coordination of care (as documented) at patient's floor/unit and/or counseling patient: - Constitutional Vitals: Temp Pulse Resp BP Pulse Ox 98.3 F 64 16 104/71 95 10/20/17 11:40 10/20/17 11:40 10/20/17 11:40 10/20/17 11:40 10/20/17 11:40 Internal Medicine: Result - Labs CBC & Chem 7: 10/20/17 06:43 10/20/17 06:43 Labs: Short CBC 10/20/17 Range/Units 06:43 WBC 15.1 H (4.3-11.1) K/mcL Hgb 8.8 L (12.9-16.9) g/dL Hct 28.0 L (37.5-50.1) % Plt Count 173 (140-400) K/mcL Neutrophils # 10.8 H (1.6-8.9) K/mcL BMP 10/20/17 06:43 Sodium 136 Potassium 3.5 Chloride 104 Carbon Dioxide 27 BUN 23 Creatinine 1.55 H Glucose 124 H Calcium 9.4 Cardiac Enzymes 10/19/17 Range/Units 16:33 Troponin I < 0.03 (< 0.04) ng/mL - ABG Interpretation ABG results: PT/INR, D-dimer PT 17.7 Seconds (9.4-12.1) H 10/20/17 06:43 Consult Discharge Plan - Plan [facility] Care Provider[facility] - - Attending Attestation I examined this patient 10/20, and my medical decision-making was reviewed with the Resident Physician. I agree with the documented findings, disposition and treatment plan as described except to the extent set forth below. 71 M , resident of the [facility] with PMH of Schizophrenia, CKD, HTN, DM, HTBN, HLD who is admitted as in-patient and being managed for Sepsis secondary to HCAP. During admission, found to be altered and mostly non-verbal At my time of evaluation this morning, he is awake and alert, oriented to person. He is however making incomprehensible sounds . He is not agitated, Able to hold a conversation and not confused, not in any form of distress, chest with basal rhonchi, abdomen is benign, no pedal edema. Tremors ++ Labs and Imaging revieweed: Leukocytosis improving, worsening normocytic anemia , chem at baseline, Vit B12 and folate WNL. We will continue vanco/levaquin/zosyn, IVF, home meds, follow culture reports. Plan is to de-escalate antibiotics with negative blood cultures when patient is clinically stable Speech eval noted, diet advanced Continue other management Rest of details as in the resident physician's documentation <Pratik Aguillon - Last Filed: 10/20/17 17:13> Date of Encounter: 10/20/17 Time of Encounter: 08:20 - Assessment and plan (1) Sepsis Current Visit: Yes Status: Acute Assessment and plan: Presented with fever, tachycardia, leukocytosis and altered mental status. Lactic acid normal. Continue IV hydration and antibiotics, cultures negative at this time Appears to have resolved Continue Vancomycin, Zosyn, Levaquin Day 2 Stop Vancomycin tomorrow pending negative blood cultures Qualifiers: Sepsis type: sepsis due to unspecified organism Qualified Code(s): A41.9 - Sepsis, unspecified organism (2) HCAP (healthcare-associated pneumonia) Current Visit: Yes Status: Suspected Assessment and plan: CT chest shows improvement in loculated pleural effusion and infiltrates at left base, but new opacity in left lower lobe and RUL bronchiolitis; f/up blood cultures remain negative day 1. urine Legionella and Strep pneumoniae Ag negative; continue IV Vancomycin, Zosyn and Levaquin for possible HCAP supplemental O2 and supportive care; (3) Hypertension Current Visit: Yes Status: Chronic Assessment and plan: BP acceptable; resume home meds; Qualifiers: Hypertension type: essential hypertension Qualified Code(s): I10 - Essential (primary) hypertension (4) Anemia Current Visit: Yes Status: Chronic Assessment and plan: Acute on chronic anemia, unknown etiology Checked B12 and Folate, both in normal range I will check Iron studies in the morning and a peripheral smear Qualifiers: Anemia type: unspecified type Qualified Code(s): D64.9 - Anemia, unspecified (5) Schizophrenia Current Visit: Yes Status: Chronic Assessment and plan: continue home meds; supportive care Psych consult today Qualifiers: Schizophrenia type: paranoid schizophrenia Qualified Code(s): F20.0 - Paranoid schizophrenia (6) DVT prophylaxis Current Visit: No Status: Acute Assessment and plan: SQ Heparin - Time Spent With Patient Total time spent is greater than 50% in coordination of care (as documented) at patient's floor/unit and/or counseling patient: - Subjective Interval history: The patient is seen and examined at bedside. Although he remains somewhat confused, it appears that this is improved by comparison to previous exams. He is conversational, and does seem to respond appropriately to most questions. - Constitutional Vitals: Temp Pulse Resp BP Pulse Ox 98.9 F 90 17 101/54 95 10/20/17 07:07 10/20/17 07:07 10/20/17 07:07 10/20/17 07:07 10/20/17 07:07 General appearance: Present: A&O X 1 (mumbling and moaning). Absent: answers questions appropriately - Head Head exam: Present: atraumatic, normal inspection, normocephalic - Neck Neck exam general surgery: Present: supple, trachea midline. Absent: lymphadenopathy - Respiratory Respiratory exam: Present: rhonchi, wheezes. Absent: accessory muscle use, rales - Cardiovascular Cardiovascular exam: Present: RRR, +S1, +S2. Absent: diastolic murmur, gallop, rubs, systolic murmur - GI/Abdominal GI/Abdominal exam: Present: normal bowel sounds, soft, no peritoneal signs. Absent: distended, tenderness - Extremities Exam Extremities exam: Present: warm. Absent: calf tenderness, cyanotic, pedal edema - Psychiatric Psychiatric exam: Present: agitated, flat affect - Skin Skin exam: Present: dry, intact Internal Medicine: Result - Labs CBC & Chem 7: 10/20/17 06:43 10/20/17 06:43 Labs: BMP 10/20/17 06:43 Sodium 136 Potassium 3.5 Chloride 104 Carbon Dioxide 27 BUN 23 Creatinine 1.55 H Glucose 124 H Calcium 9.4 Cardiac Enzymes 10/19/17 10/19/17 Range/Units 10:20 16:33 Troponin I < 0.03 < 0.03 (< 0.04) ng/mL - ABG Interpretation ABG results: PT/INR, D-dimer PT 17.7 Seconds (9.4-12.1) H 10/20/17 06:43
[2017-10-20] MEDS: *HR* Heparin 5,000 UNIT/ML VIAL SQ SCH ×2 (07:58→18:04)
[2017-10-20] MEDS ORDERED: Ringers Solution, Lactated 1,000 ML ONE (08:30)
[2017-10-20] MEDS: Piperacillin/Tazobactam 3.375 GM in 0.9 % Sodium Chloride Mini Bag 100 ML IVPB SCH ×2 (08:33→16:17)
[2017-10-20] MEDS: Topiramate 25 MG TABLET PO SCH ×2 (08:34→20:47)
[2017-10-20] MEDS: Gabapentin 300 MG CAPSULE PO SCH ×2 (08:34→20:47)
[2017-10-20] MEDS: *HR* LORazepam 0.5 MG TABLET PO SCH ×3 (08:34→20:47)
[2017-10-20] MEDS: Sennosides/Docusate Sodium TABLET PO SCH ×2 (08:34→20:47)
[2017-10-20] MEDS: Aspirin Enteric Coated 81 MG Tablet PO SCH (08:34)
[2017-10-20] MEDS: Insulin LISPRO 300 UNITS/3 ML VIAL SQ SCH ×4 (08:35→20:42)
[2017-10-20] MEDS: Ringers Solution, Lactated 1,000 ML IVC SCH (08:35)
[2017-10-20 08:36] LABS: Basophils % 0.1 %; Eosinophils # 0.5 K/mcL (0.0-0.6); Eosinophils % 3.3 %; Hemoglobin 8.8 g/dL (12.9-16.9); Immature Granulocytes % 0.4 % (0-4); Lymphocytes # 2.3 K/mcL (0.6-4.6); Mean Corpuscular HGB Conc 31.4 g/dL (31.6-35.5); Mean Corpuscular Hemoglobin 30.2 pg (28.0-33.3); Mean Corpuscular Volume 96.2 fL (83.0-100.0); Mean Platelet Volume 10.2 fL (9.4-12.4); Monocytes # 1.5 K/mcL (0.0-1.3); Monocytes % 9.7 %; Neutrophils # 10.8 K/mcL (1.6-8.9); Platelet Count 173 K/mcL (140-400); Red Blood Count 2.91 M/mcL (4.19-5.50); Red Cell Distribution Width 15.2 % (11.5-14.5); Segmented Neutrophils % 71.5 %
[2017-10-20 13:10] LABS: Folate 14.6 ng/mL (3.0-16.0)
[2017-10-20] MEDS: Fluticasone Propionate Nasal 50 MCG/SPRAY BOTTLE NS SCH (20:48)
[2017-10-21] MEDS: Piperacillin/Tazobactam 3.375 GM in 0.9 % Sodium Chloride Mini Bag 100 ML IVPB SCH ×3 (01:00→15:33)
[2017-10-21 01:14] LABS: Basophils % 0.1 %; Eosinophils # 0.6 K/mcL (0.0-0.6); Eosinophils % 6.1 %; Hematocrit 26.1 % (37.5-50.1); Hemoglobin 8.4 g/dL (12.9-16.9); Immature Granulocytes % 0.4 % (0-4); Lymphocytes % 19.3 %; Mean Corpuscular HGB Conc 32.2 g/dL (31.6-35.5); Mean Corpuscular Hemoglobin 30.8 pg (28.0-33.3); Mean Corpuscular Volume 95.6 fL (83.0-100.0); Mean Platelet Volume 9.4 fL (9.4-12.4); Neutrophils # 6.6 K/mcL (1.6-8.9); Platelet Count 137 K/mcL (140-400); Red Blood Count 2.73 M/mcL (4.19-5.50); Red Cell Distribution Width 15.2 % (11.5-14.5); Segmented Neutrophils % 64.1 %
[2017-10-21 01:38] LABS: Calcium 9.4 mg/dL (8.6-10.3); Potassium 3.9 mEq/L (3.5-5.1)
[2017-10-21] MEDS ORDERED: Levofloxacin 750 MG/150 ML 750 MG/150 ML BAG IVPB SCH (06:00)
[2017-10-21] MEDS: *HR* Heparin 5,000 UNIT/ML VIAL SQ SCH ×2 (06:02→17:02)
--- NOTE | 2017-10-21 07:24 | Internal Med Progress Note ---
<Partik Aguillon - Last Filed: 10/21/17 11:38> Date of Encounter: 10/21/17 Time of Encounter: 08:00 - Assessment and plan (1) Sepsis Current Visit: Yes Status: Acute Assessment and plan: Presented with fever, tachycardia, leukocytosis and altered mental status. Lactic acid normal. Continue IV hydration and antibiotics, cultures negative at this time Appears to have resolved Stopped vancomycin today due to 48 hours negative blood cultures Continue vancomycin and Levaquin today, consider de-escalating tomorrow Qualifiers: Sepsis type: sepsis due to unspecified organism Qualified Code(s): A41.9 - Sepsis, unspecified organism (2) HCAP (healthcare-associated pneumonia) Current Visit: Yes Status: Suspected Assessment and plan: CT chest shows improvement in loculated pleural effusion and infiltrates at left base, but new opacity in left lower lobe and RUL bronchiolitis; f/up blood cultures remain negative day 2. urine Legionella and Strep pneumoniae Ag negative; Stopped vancomycin due to negative cultures for 48 hours continue IV Zosyn and Levaquin for possible HCAP supplemental O2 and supportive care; (3) Hypertension Current Visit: Yes Status: Chronic Assessment and plan: BP acceptable; resume home meds; Qualifiers: Hypertension type: essential hypertension Qualified Code(s): I10 - Essential (primary) hypertension (4) Schizophrenia Current Visit: Yes Status: Chronic Assessment and plan: continue home meds; supportive care Psych consult today Qualifiers: Schizophrenia type: paranoid schizophrenia Qualified Code(s): F20.0 - Paranoid schizophrenia (5) DVT prophylaxis Current Visit: No Status: Acute Assessment and plan: SQ Heparin (6) Anemia Current Visit: Yes Status: Chronic Assessment and plan: Acute on chronic anemia, unknown etiology Checked B12 and Folate, both in normal range Iron studies result of this morning demonstrating severe iron deficiency anemia I will order occult blood stool test, peripheral smear Start Venofer 100mg today, likely start 200x5 days tomorrow Consider GI consult for follow-up outpatient as needed Qualifiers: Anemia type: iron deficiency Iron deficiency anemia type: unspecified iron deficiency Qualified Code(s): D50.9 - Iron deficiency anemia, unspecified - Time Spent With Patient Total time spent is greater than 50% in coordination of care (as documented) at patient's floor/unit and/or counseling patient: - Subjective Interval history: The patient is seen and examined at bedside. Although he remains somewhat confused, it appears that this is improved by comparison to previous exams. He is conversational, and does seem to respond appropriately to most questions. He is complaining today of numbness and tingling as well as some pain in his upper and lower extremities. His complaints are vague, and he does not know exactly what his concern is. - Constitutional Vitals: Temp Pulse Resp BP Pulse Ox 97.8 F 65 15 121/60 99 10/21/17 06:23 10/21/17 06:23 10/21/17 06:23 10/21/17 06:23 10/21/17 06:23 General appearance: Present: A&O X 1 (mumbling and moaning). Absent: answers questions appropriately Exam: - Head Head exam: Present: atraumatic, normal inspection, normocephalic - Neck Neck exam general surgery: Present: supple, trachea midline. Absent: lymphadenopathy - Respiratory Respiratory exam: Present: rhonchi, wheezes. Absent: accessory muscle use, rales - Cardiovascular Cardiovascular exam: Present: RRR, +S1, +S2. Absent: diastolic murmur, gallop, rubs, systolic murmur - GI/Abdominal GI/Abdominal exam: Present: normal bowel sounds, soft, no peritoneal signs. Absent: distended, tenderness - Extremities Exam Extremities exam: Present: warm. Absent: calf tenderness, cyanotic, pedal edema - Psychiatric Psychiatric exam: Present: agitated, flat affect - Skin Skin exam: Present: dry, intact Internal Medicine: Result - Labs CBC & Chem 7: 10/21/17 01:00 10/21/17 01:00 Labs: Short CBC 10/20/17 10/21/17 Range/Units 06:43 01:00 WBC 15.1 H 10.3 (4.3-11.1) K/mcL Hgb 8.8 L 8.4 L (12.9-16.9) g/dL Hct 28.0 L 26.1 L (37.5-50.1) % Plt Count 173 137 L (140-400) K/mcL Neutrophils # 10.8 H 6.6 (1.6-8.9) K/mcL BMP 10/21/17 01:00 Sodium 138 Potassium 3.9 Chloride 106 Carbon Dioxide 28 BUN 21 Creatinine 1.63 H Glucose 117 H Calcium 9.4 - ABG Interpretation ABG results: PT/INR, D-dimer PT 17.7 Seconds (9.4-12.1) H 10/20/17 06:43 Consult Discharge Plan - Plan [facility]: [facility] [Primary Care Provider] - <Alexey Liuju Jenna - Last Filed: 10/21/17 13:18> Date of Encounter: 10/21/17 - Assessment and plan (1) Hypertension Current Visit: Yes Status: Chronic Qualifiers: Hypertension type: essential hypertension Qualified Code(s): I10 - Essential (primary) hypertension (2) Schizophrenia Current Visit: Yes Status: Chronic Qualifiers: Schizophrenia type: paranoid schizophrenia Qualified Code(s): F20.0 - Paranoid schizophrenia (3) DVT prophylaxis Current Visit: No Status: Acute (4) HCAP (healthcare-associated pneumonia) Current Visit: Yes Status: Suspected (5) Sepsis Current Visit: Yes Status: Acute Qualifiers: Sepsis type: sepsis due to unspecified organism Qualified Code(s): A41.9 - Sepsis, unspecified organism (6) Anemia Current Visit: Yes Status: Chronic Qualifiers: Anemia type: iron deficiency Iron deficiency anemia type: unspecified iron deficiency Qualified Code(s): D50.9 - Iron deficiency anemia, unspecified - Time Spent With Patient Total time spent is greater than 50% in coordination of care (as documented) at patient's floor/unit and/or counseling patient: - Constitutional Vitals: Temp Pulse Resp BP Pulse Ox 97.8 F 65 15 121/60 99 10/21/17 06:23 10/21/17 06:23 10/21/17 06:23 10/21/17 06:23 10/21/17 06:23 Internal Medicine: Result - Labs CBC & Chem 7: 10/21/17 01:00 10/21/17 01:00 Labs: Short CBC 10/21/17 Range/Units 01:00 WBC 10.3 (4.3-11.1) K/mcL Hgb 8.4 L (12.9-16.9) g/dL Hct 26.1 L (37.5-50.1) % Plt Count 137 L (140-400) K/mcL Neutrophils # 6.6 (1.6-8.9) K/mcL BMP 10/21/17 01:00 Sodium 138 Potassium 3.9 Chloride 106 Carbon Dioxide 28 BUN 21 Creatinine 1.63 H Glucose 117 H Calcium 9.4 - ABG Interpretation ABG results: PT/INR, D-dimer PT 17.7 Seconds (9.4-12.1) H 10/20/17 06:43 - Attending Attestation I examined this patient 10/21, and my medical decision-making was reviewed with the Resident Physician. I agree with the documented findings, disposition and treatment plan as described except to the extent set forth below. 71 M [facility] of Sch[facility]ia, CKD, HTN, DM, HTBN, HLD who is admitted as in-patient and being managed for Sepsis secondary to HCAP. During admission, found to be altered and mostly non-verbal He is alert, awake and oriented to place and person, He is not agitated, not in any form of distress, chest with basal rhonchi, abdomen is benign, no pedal edema. Tremors ++ Labs and Imaging reviewed: Leukocytosis resolved, Iron deficiency anemia, chem at baseline, Vit B12 and folate WNL. Discontinue Vancomycin, cultures are negative PTOT manjinder Continue other management Rest of details as in the resident physician's documentation
[2017-10-21] MEDS: Insulin LISPRO 300 UNITS/3 ML VIAL SQ SCH ×4 (08:12→21:52)
[2017-10-21] MEDS: Sennosides/Docusate Sodium TABLET PO SCH ×2 (08:19→19:54)
[2017-10-21] MEDS: Aspirin Enteric Coated 81 MG Tablet PO SCH (08:21)
[2017-10-21] MEDS: *HR* LORazepam 0.5 MG TABLET PO SCH ×3 (08:21→19:55)
[2017-10-21] MEDS: Gabapentin 300 MG CAPSULE PO SCH ×2 (08:21→19:54)
[2017-10-21] MEDS: Acetaminophen 325 MG TABLET PO PRN (08:23)
[2017-10-21] MEDS: Topiramate 25 MG TABLET PO SCH ×2 (08:30→19:54)
[2017-10-21] MEDS ORDERED: Aminoglycoside Consult 1 EACH MC ONE (10:18)
--- NOTE | 2017-10-21 16:56 | Electrocardiograph Report ---
[place] [id number] Test Date: 2017-10-18 Pat Name: Heriberto Upton Department: 102 Room: 2NE18 Gender: M [employer]: : 1945 Requested By: Ani See Order Number: [id number] Reading MD: Cecy Hsu Measurements Intervals [place] Rate: 93 P: 98 MN: 178 QRS: -67 QRSD: 118 T: 83 QT: 363 QTc: 414 Interpretive Statements SINUS RHYTHM MARKED LEFT AXIS DEVIATION [QRS AXIS < -30] MODERATE INTRAVENTRICULAR CONDUCTION DELAY [105+ ms QRS DURATION, 80+ ms Q/S IN V1/V2, NO Q AND 60+ ms R IN I/aVL/V5/V6] WARNING: DATA QUALITY MAY AFFECT INTERPRETATION Electronically Signed On 10-21-2017 16:55:29 EDT by Cecy Hsu
[2017-10-21] MEDS: Fluticasone Propionate Nasal 50 MCG/SPRAY BOTTLE NS SCH (19:56)
[2017-10-22] MEDS: Piperacillin/Tazobactam 3.375 GM in 0.9 % Sodium Chloride Mini Bag 100 ML IVPB SCH (00:03)
[2017-10-22] MEDS: *HR* Heparin 5,000 UNIT/ML VIAL SQ SCH ×2 (05:00→17:43)
[2017-10-22 08:07] LABS: Bilirubin,Total 0.3 mg/dL (0.3-1.0); Calcium 9.1 mg/dL (8.6-10.3); Globulin 2.9 g/dL (2.4-3.5); Potassium 3.5 mEq/L (3.5-5.1); Total Protein 5.9 g/dL (6.4-8.9)
[2017-10-22 08:13] LABS: Eosinophils # 0.5 K/mcL (0.0-0.6); Eosinophils % 7.4 %; Hematocrit 25.8 % (37.5-50.1); Hemoglobin 8.3 g/dL (12.9-16.9); Immature Granulocytes % 0.8 % (0-4); Lymphocytes # 1.4 K/mcL (0.6-4.6); Lymphocytes % 22.7 %; Mean Corpuscular HGB Conc 32.2 g/dL (31.6-35.5); Mean Corpuscular Hemoglobin 31.3 pg (28.0-33.3); Mean Corpuscular Volume 97.4 fL (83.0-100.0); Mean Platelet Volume 10.1 fL (9.4-12.4); Monocytes # 0.7 K/mcL (0.0-1.3); Monocytes % 11.2 %; Neutrophils # 3.6 K/mcL (1.6-8.9); Nucleated Red Blood Cells 0.3 /100 WBC (0); Platelet Count 156 K/mcL (140-400); Red Blood Count 2.65 M/mcL (4.19-5.50); Red Cell Distribution Width 14.9 % (11.5-14.5); Segmented Neutrophils % 57.9 %
[2017-10-22] MEDS: Topiramate 25 MG TABLET PO SCH ×2 (08:37→20:00)
[2017-10-22] MEDS: Sennosides/Docusate Sodium TABLET PO SCH ×2 (08:39→20:00)
[2017-10-22] MEDS: Aspirin Enteric Coated 81 MG Tablet PO SCH (08:40)
[2017-10-22] MEDS: Acetaminophen 325 MG TABLET PO PRN (08:41)
[2017-10-22] MEDS: Gabapentin 300 MG CAPSULE PO SCH ×2 (08:41→20:01)
[2017-10-22] MEDS: *HR* LORazepam 0.5 MG TABLET PO SCH ×3 (08:42→20:01)
[2017-10-22] MEDS: Insulin LISPRO 300 UNITS/3 ML VIAL SQ SCH ×4 (08:42→21:03)
[2017-10-22 09:04] LABS: Immature Reticulocyte % 35.2 % (11.0-38.0); Retculocyte # 0.07 M/mcL (0.05-0.10); Reticulocyte % 2.7 % (1.6-2.8)
--- NOTE | 2017-10-22 14:03 | Discharge Summary ---
<Yves Liu T - Last Filed: 10/22/17 16:33> Orders not resulted at time of discharge: Pending orders 10/21/17 10:17 Occult Blood,Stool [BF] Routine 10/22/17 06:58 Haptoglobin Routine Date of Encounter: 10/22/17 - Discharge Diagnosis (1) Hypertension Status: Chronic Qualifiers: Hypertension type: essential hypertension Qualified Code(s): I10 - Essential (primary) hypertension (2) Schizophrenia Status: Chronic Qualifiers: Schizophrenia type: paranoid schizophrenia Qualified Code(s): F20.0 - Paranoid schizophrenia (3) DVT prophylaxis Status: Acute (4) HCAP (healthcare-associated pneumonia) Status: Suspected (5) Sepsis Status: Acute Qualifiers: Sepsis type: sepsis due to unspecified organism Qualified Code(s): A41.9 - Sepsis, unspecified organism (6) Anemia Status: Chronic Qualifiers: Anemia type: iron deficiency Iron deficiency anemia type: unspecified iron deficiency Qualified Code(s): D50.9 - Iron deficiency anemia, unspecified Hospital course: Mr. Upton is a 71 year old male Discharge discussed with: patient, nurse, social work, case management - Time Spent with Patient Total time spent providing and/or coordinating discharge services: Greater than 30 minutes - Discharge Medications Prescriptions: Ferrous Sulfate 325 mg PO BIDWM #90 tablet levoFLOXacin [Levaquin] 750 mg PO DAILY #6 tablet Home Medications: Acetaminophen [Tylenol] 650 mg PO Q6H PRN 02/22/16 [History] Albuterol Neb [Proventil Neb] 2.5 mg IH Q6H PRN 02/22/16 [History] Benztropine [Cogentin] 1 mg PO TID 02/22/16 [History] LORazepam [Ativan] 0.5 mg PO TID 02/22/16 [History] Potassium Chloride [K-Tab ER] 20 meq PO DAILY 02/22/16 [History] Topiramate [Topamax] 25 mg PO BID 02/22/16 [History] Aspirin Enteric Coated [Aspirin EC] 81 mg PO DAILY tablet. 02/23/16 [Rx] Eye Vitamin-Minerals Tablet 1 cap PO BID 10/19/17 [History] Fluticasone Propionate Nasal [Flonase] 1 spray NS HS 10/19/17 [History] Gabapentin [Neurontin] 300 mg PO BID 10/19/17 [History] Haloperidol [Haldol] 2.5 mg PO DAILY 10/19/17 [History] Haloperidol [Haldol] 5 mg PO HS 10/19/17 [History] Lurasidone HCl [Latuda] 80 mg PO HS 10/19/17 [History] Metoprolol [Lopressor] 37.5 mg PO BID 10/19/17 [History] Nitroglycerin [Nitrostat] 0.4 mg SL Q5M PRN 10/19/17 [History] Polyethylene Glycol 3350 [MiraLAX] 17 gm PO DAILY 10/19/17 [History] Sennosides/Docusate Sodium [Senna-Docusate Sodium Tablet] 2 each PO BID [History] Tamsulosin [Flomax] 0.4 mg PO DAILY 10/19/17 [History] glipiZIDE [Glipizide] 10 mg PO BID 10/19/17 [History] Ferrous Sulfate 325 mg PO BIDWM #90 tablet 10/22/17 [Rx] Ipratropium/Albuterol Neb [Duoneb] 3 ml IH [id number] PRN inhsol 10/22/17 [Rx] levoFLOXacin [Levaquin] 750 mg PO DAILY #6 tablet 10/22/17 [Rx] Allergies/Adverse Reactions: 3 Allergy/AdvReac Type Severity Reaction Status Date / Time tramadol Allergy Mild Rash Verified 02/22/16 17:05 Date of admission: 10/19/17 02:33 [facility] care physician: [facility] Consults: 10/19/17 03:32 Consult to Nutrition [CONS] Routine Comment: Consulting Provider: NUTRITION Reason for Dietary Consult: MST Score - Constitutional Vitals: Temp Pulse Resp BP Pulse Ox 98.2 F 63 16 131/80 94 10/22/17 16:16 10/22/17 16:16 10/22/17 16:16 10/22/17 16:16 10/22/17 16:16 - Patient Status Disposition: Transfer Inpatient Rehab Fac Condition: Fair - Discharge Instructions Instructions: Iron Supplements (By mouth), Levofloxacin (By mouth), Chest Pain (DC), Diabetes Mellitus Type 2 in Adults (DC), Chronic Obstructive Pulmonary Disease (DC), Sepsis (DC), Chronic Hypertension (DC), Anemia (GEN) Follow Up With: [facility] [Primary Care Provider] - Additional Instructions: Follow-up with primary care in 2-3 days Continue Levaquin for 6 days Continue Ferrous sulfate twice a day with meals for 3 months, repeat blood work at that time will likely be necessary Continue Duonebs as needed for shortness of breath, wheezing, and cough Return to the ED for worsening symptoms - Attending Attestation I examined this patient 10/22, and my medical decision-making was reviewed with the Resident Physician. I agree with the documented findings, disposition and treatment plan as described except to the extent set forth below. 71 M , resident of the NH with PMH of Schizophrenia, CKD, HTN, DM, HTN, HLD who is admitted as in-patient and being managed for Sepsis secondary to HCAP. He is alert, awake and oriented to place and person, He is not agitated, not in any form of distress, chest with basal rhonchi, abdomen is benign, no pedal edema. Tremors ++ Labs and Imaging reviewed: Leukocytosis resolved, Iron deficiency anemia is stable, chem at baseline, Vit B12 and folate WNL. Stable to be discharged back to the NH on Levaquin to complete 10 days of therapy Rest of details as in the resident physician's documentation <[email or web address] - Last Filed: 10/22/17 17:48> - NOTES TO OUTPATIENT PROVIDER Notes to Outpatient Provider: The patient has significant drop of hgb at 8.3 which appears to be chronic, however based on Retic count he has been responding to venofer appropriately. We will transition the patient to oral iron , however he will require close follow-up. Orders not resulted at time of discharge: Pending orders 10/21/17 10:17 Occult Blood,Stool [BF] Routine 10/22/17 06:58 Haptoglobin Routine Date of Encounter: 10/22/17 Time of Encounter: 08:40 - Discharge Diagnosis (1) Sepsis Priority: Primary Status: Acute Qualifiers: Sepsis type: sepsis due to unspecified organism Qualified Code(s): A41.9 - Sepsis, unspecified organism (2) HCAP (healthcare-associated pneumonia) Priority: Primary Status: Suspected (3) Hypertension Priority: Secondary Status: Chronic Qualifiers: Hypertension type: essential hypertension Qualified Code(s): I10 - Essential (primary) hypertension (4) Anemia Priority: Secondary Status: Chronic Qualifiers: Anemia type: iron deficiency Iron deficiency anemia type: unspecified iron deficiency Qualified Code(s): D50.9 - Iron deficiency anemia, unspecified (5) Schizophrenia Priority: Secondary Status: Chronic Qualifiers: Schizophrenia type: paranoid schizophrenia Qualified Code(s): F20.0 - Paranoid schizophrenia (6) DVT prophylaxis Priority: Secondary Status: Acute Hospital course: Mr. Upton is a 71 year old male with schizophrenia, CKD, HTN, DM, who is a skilled nursing resident at the [facility] psych [facility]., who presented to the ED with altered mental status and cough/fever which had been going on for about one day. At that time he was described as hypersomnolent and minimally responsive. He was evaluated in the ED and it was noted on CXR and CT that he had left lung infiltrates suspicious for HCAP. He was admitted at that time for treatment of pneumonia with Vancomycin, zosyn and levaquin, and was transitioned to levaquin upon result of negative blood cultures. He quickly returned to baseline mental function, which did include some disorientation. Throughout his stay, the patient suffered severe anxiety and outbursts of expression what are apparently his baseline. He also was found to have an Iron deficiency anemia while being treated which appears to be due to poor iron intake. We started the patient on IV venofer which did lead to minimal improvement. The patient is stable and prepared for discharge back to long-term psych facility on PO levaquin for total of 10 day course. Discharge discussed with: patient, nurse, social work, case management - Time Spent with Patient Total time spent providing and/or coordinating discharge services: Greater than 30 minutes Date of admission: 10/19/17 02:33 Primary care physician: PCP [facility] Consults: 10/19/17 03:32 Consult to Nutrition [CONS] Routine Comment: Consulting Provider: NUTRITION Reason for Dietary Consult: MST Score Discharging clinician: Pratik Aguillon Anticipated date of discharge: 10/22/17 - Constitutional Vitals: Temp Pulse Resp BP Pulse Ox 97.6 F 54 16 122/78 94 10/22/17 11:21 10/22/17 11:21 10/22/17 11:21 10/22/17 11:21 10/22/17 11:21 Exam: General appearance: Present: A&O X 1 (mumbling and moaning). Absent: answers questions appropriately Exam: - Head Head exam: Present: atraumatic, normal inspection, normocephalic - Neck Neck exam general surgery: Present: supple, trachea midline. Absent: lymphadenopathy - Respiratory Respiratory exam: Present: rhonchi, wheezes. Absent: accessory muscle use, rales - Cardiovascular Cardiovascular exam: Present: RRR, +S1, +S2. Absent: diastolic murmur, gallop, rubs, systolic murmur - GI/Abdominal GI/Abdominal exam: Present: normal bowel sounds, soft, no peritoneal signs. Absent: distended, tenderness - Extremities Exam Extremities exam: Present: warm. Absent: calf tenderness, cyanotic, pedal edema - Psychiatric Psychiatric exam: Present: agitated, flat affect - Skin Skin exam: Present: dry, intact - Patient Status Functional capacity at discharge: bed bound Overall status at discharge: patient is progressing back to baseline - Diet and Activity Activity: as per physical therapy, increase activity as tolerated, resume usual activities as tolerated Diet: advance to your usual diet
[2017-10-22] MEDS: Fluticasone Propionate Nasal 50 MCG/SPRAY BOTTLE NS SCH (20:02)
[2017-10-23] MEDS: *HR* Heparin 5,000 UNIT/ML VIAL SQ SCH (05:35)
[2017-10-23 06:56] VITALS: BP 148/79
[2017-10-23] MEDS: Topiramate 25 MG TABLET PO SCH (08:00)
[2017-10-23] MEDS: Sennosides/Docusate Sodium TABLET PO SCH (08:00)
[2017-10-23] MEDS: *HR* LORazepam 0.5 MG TABLET PO SCH (08:00)
[2017-10-23] MEDS: Aspirin Enteric Coated 81 MG Tablet PO SCH (08:00)
[2017-10-23] MEDS: Gabapentin 300 MG CAPSULE PO SCH (08:00)
[2017-10-23] MEDS: Insulin LISPRO 300 UNITS/3 ML VIAL SQ SCH (08:01)
[2017-10-23] MEDS ORDERED: levoFLOXacin 750 MG TABLET PO SCH (09:00)
== END 2017-10-23 10:19 | DRG 871 ==
LOC: EMEROO 22:30 → 2NENU 22:30 → SUATTDRO 10-19 02:33 → 2NENU 10-19 02:36
PROVIDERS: ADMIT Internal Medicine; ATTEND Internal Medicine